=== PATIENT | male | born 1975 | race African-American/Black ===

== ENCOUNTER 2021-02-23 19:33 | Emergency (ER) | payer SELFPAY ==
[~2021-02-23] VITALS: Ht 175.3 cm; Wt 98.0 kg
[2021-02-23 21:25] VITALS: BP 122/69
== END 2021-02-23 21:28 | disposition home or self-care (01) ==
LOC: ER 19:33
DX: I10 Essential (primary) hypertension (principal); Z86.711 Personal history of pulmonary embolism; Z87.01 Personal history of pneumonia (recurrent); Z87.440 Personal history of urinary (tract) infections
CPT/HCPCS: 99281